=== PATIENT | female | born 1980 | race Caucasian/White ===

== ENCOUNTER → 2020-04-13 10:38 | Outpatient (CLI) | payer OTHER, SELFPAY ==
--- NOTE | ~2020-04-13 | CT_ITS ---
EXAMINATION: CT chest abdomen pelvis w con DATE: 04/13/2020 11:16 INDICATION: Malignant neoplasm of upper outer quadrant of left breast. TECHNIQUE: Computed tomography (CT) of the chest, abdomen, and pelvis was performed with 100 mL Omnip aque 350 intravenous contrast. Automated exposure control and iterative reconstruction technique were employed. The dose-length product was 624.67 mGy-cm. COMPARISON: CT chest, abdomen, and pelvis 10/11/2019, 04/05/19 FINDINGS: CHEST CT: There is mild atelectasis in right lung. No pleural effusion or pneumothorax. The heart size is amber l. No pericardial effusion. There are bilateral mastectomies and bilateral breast implants. There is a 2.5 cm nodule in right thyroid lobe. There are no pathologically enlarged lymph nodes. There is chr onic fat stranding around the left internal mammary chain, consistent with treatment changes. ABDOMEN/PELVIS CT: The liver, gallbladder, spleen, pancreas, adrenal glands, and kidneys are normal. There are no dilate d loops of bowel. The appendix is normal. There are no pathologically enlarged lymph nodes. There is no free intraperitoneal fluid. There is no osseous metastatic disease. IMPRESSION: 1. No evidence of metastatic disease. 2. 2.5 cm right thyroid nodule, increased from 2.3 cm on 04/05/19 and 1.9 cm on 07/24/2015. Consider ul trasound-guided fine-needle aspiration. Reviewed, dictated and finalized at location A. IMPRESSION: 1. No evidence of metastatic disease. 2. 2.5 cm right thyroid nodule, increased from 2.3 cm on 04/05/19 and 1.9 cm on . Consider ultrasound-guided fine-needle aspiration.
[2020-04-13 11:06] LABS: Estimated Glomerular Filt Rate > 60
== END ==
PROVIDERS: Visit Provider Internal Medicine Medical Oncology
DX: C50.412 Malignant neoplasm of upper-outer quadrant of left female breast (principal); Z17.1 Estrogen receptor negative status [ER-]; E04.1 Nontoxic single thyroid nodule
CPT/HCPCS: 36415; 71260; 74177; Q9967

== ENCOUNTER → 2020-10-17 10:51 | Outpatient (CLI) | payer OTHER, SELFPAY ==
--- NOTE | ~2020-10-17 | CT_ITS ---
EXAMINATION: CT chest abdomen pelvis w con DATE: 10/17/2020 11:40 INDICATION: Chest wall pain and generalized abdominal and pelvic pain. Left breast cancer. TECHNIQUE: Computed tomography (CT) of the chest, abdomen, and pelvis was performed with 100 mL Omnip aque-350 intravenous contrast. Automated exposure control and iterative reconstruction technique were employed. The dose-length product was 712.24 mGy-cm. COMPARISON: 10/14/2019 FINDINGS: CHEST CT: Postoperative change of prior bilateral mastectomies with bilateral breast implants. Multiple surgica l clips consistent with associated left axillary lymph node dissection. 2.4 cm heterogeneously enhanc ing right thyroid mass. Lungs are clear with no pulmonary nodules, pneumonia, pulmonary edema or othe r pulmonary infiltrates, pleural effusion or pneumothorax. Heart size is normal. No pericardial effus ion. Thoracic aorta is normal in caliber with no dissection. No evident pulmonary embolism. No pathol ogically enlarged thoracic lymphadenopathy. Mild lower thoracic levocurvature. No suspicious lytic or blastic bone lesions. ABDOMEN/PELVIS CT: Liver, gallbladder, spleen, pancreas, bilateral adrenal glands and right kidney are normal. 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 Unclear wheth er there is more distal fusion. Bladder is normal. The uterus is not identified and has likely been s urgically resected. Bowels including the appendix are normal. No free intraperitoneal gas or fluid. N o pathologically enlarged abdominal or pelvic lymphadenopathy. Minimal degenerative skeletal changes in the lumbar spine and bilateral hips. No suspicious lytic or blastic bone lesions. IMPRESSION: 1. No evident metastatic disease or acute process in the chest, abdomen or pelvis. 2. Unchanged 2.5 cm right thyroid mass. Recommend ultrasound-guided fine-needle aspiration. Reviewed, dictated and finalized at location A. H [employer]ATOR IMPRESSION: 1. No evident metastatic disease or acute process in the chest, abdomen or pelv is. 2. Unchanged 2.5 cm right thyroid mass. Recommend ultrasound-guided fine-needle aspiration.
[2020-10-17 11:06] LABS: Estimated Glomerular Filt Rate > 60
== END ==
PROVIDERS: Visit Provider Internal Medicine Medical Oncology
DX: C50.412 Malignant neoplasm of upper-outer quadrant of left female breast (principal); Z17.1 Estrogen receptor negative status [ER-]; E04.9 Nontoxic goiter, unspecified
CPT/HCPCS: 71260; 74177; Q9967

== ENCOUNTER → 2021-04-23 02:19 | Outpatient (CLI) | payer OTHER, SELFPAY ==
[2021-04-24 15:38] LABS: SARS-CoV-2 RNA PCR Negative
== END ==
PROVIDERS: Visit Provider Surgery Plastic and Reconstructive Surgery
DX: Z01.812 Encounter for preprocedural laboratory examination (principal); Z20.822 Contact with and (suspected) exposure to COVID-19
CPT/HCPCS: C9803; U0003; U0005

== ENCOUNTER 2021-04-23 08:05 | Outpatient (CLI) | payer OTHER, SELFPAY ==
--- NOTE | 2021-04-23 08:22 | ECG_ITS ---
Measurements Intervals [place] Rate: 85 P: 41 VT: 170 QRS: 24 QRSD: 88 T: 31 QT: 363 QTc: 433 Interpretive Statements SINUS RHYTHM DELAYED PRECORDIAL R/S TRANSITION BASELINE ARTIFACT- I, II, III, AVR, AVL, AVF BORDERLINE ECG Electronically Signed On 04-23-2021 8:36:01 CDT by Trip Fishman D.O.
== END 2021-04-23 08:06 | disposition home or self-care (01) ==
LOC: ANHSURGERY 08:07
PROVIDERS: Visit Provider Surgery Plastic and Reconstructive Surgery
DX: E10.65 Type 1 diabetes mellitus with hyperglycemia (principal); Z01.818 Encounter for other preprocedural examination; R94.31 Abnormal electrocardiogram [ECG] [EKG]
CPT/HCPCS: 93005

== ENCOUNTER 2021-04-27 16:37 | Observation (INO) | payer OTHER, SELFPAY ==
[2021-04-18 15:59] VITALS: BMI 26.6
[2021-04-18 16:20] VITALS: BMI 26.6
--- NOTE | 2021-04-25 10:11 | WPDANESEPPF ---
Anes - Initial Pre Proc Eval Procedure: Operation Date: 04/26/21 09:00 Proposed Procedures p Abdominoplasty With Liposuction - Lalito Youssef MD Date/Time: 04/25/21 10:11 Surgeon: Lalito Youssef MD Pre Op Diagnosis: skin laxity Patient Data Age: 41 Gender: F Height: 1.63 m Weight: 70.45 kg Allergies Allergy/AdvReac Type Severity Reaction Status Date / Time ciprofloxacin Allergy Severe Anaphylaxis Verified 04/18/21 15:35 Quinolones Allergy Severe ANAPHYLAXIS Unverified 04/18/21 15:35 Sulfa (Sulfonamide Allergy Severe ANAPHYLAXIS Unverified 04/18/21 15:35 Antibiotics) sulfamethizole Allergy Intermediate Hives Verified 04/18/21 15:35 sulfamethoxazole Allergy Intermediate Hives Unverified 04/18/21 15:35 Home Medications Medication Instructions Recorded Confirmed Type flash glucose scanning reader #1 each 11/04/19 04/10/21 History glucagon (human recombinant) 1 mg 1 mg SUB-Q Q20M PRN each 11/04/19 04/18/21 History solution for injection subcutaneous insulin pump #1 each 11/04/19 04/10/21 History venlafaxine 75 mg capsule,extended 75 mg PO DAILY 11/04/19 04/18/21 History release 24 hr flash glucose sensor #6 each 01/03/21 04/10/21 Rx metformin 500 mg tablet 500 mg PO BID 90 Days #180 tablet 01/08/21 04/18/21 Rx insulin pump cartridge #45 ea 01/10/21 04/10/21 Rx insulin aspart U-100 100 unit/mL See Rx Instructions .ROUTE 04/09/21 04/18/21 Rx subcutaneous solution .COMPLEX #90 ml docusate sodium 100 mg capsule 100 mg PO DAILY #14 cap 04/11/21 04/18/21 Rx carisoprodol 350 mg tablet 350 mg PO TID PRN #21 tablet 04/12/21 04/18/21 Rx oxycodone-acetaminophen 5 mg-325 1 tablet PO Q6H PRN #15 tablet 04/12/21 04/18/21 Rx mg tablet pravastatin 40 mg tablet 40 mg PO QHS 30 Days #30 tablet 04/23/21 Rx Patient hx anesthesia problems: none Family hx anesthesia problems: none PMFSH Past Medical History Medical History (Updated 04/25/21 @ 10:12 by Chun Bass DO) History of breast cancer Hyperlipidemia LDL goal <[address] Type 1 diabetes mellitus with hyperglycemia, with long-term current use of insulin Surgical History Surgical History H/O mastectomy H/O: hysterectomy Family History Family History Other Depression Family history of alcoholism Family history of malignant neoplasm of breast Hypertension Social History Social History Smoking status: Never smoker Alcohol intake: current Drinks per week: 2 Alcohol use details: socially Living arrangements: with family Spiritual care concerns: No Anes - Eval Final PreProcedure Day of Procedure 04/25/21 10:11 Patient weight: overweight Heart: regular rate and rhythm Lungs: clear to auscultation and normal air movement Airway: Mallampati scale class II Neurological: alert and oriented Last oral intake: >/= 8 hours ASA classification: III Emergent: no Anesthetic plan: proceed Anesthesia type and monitoring: general ETT and standard monitoring Informed Consent: The patient's anesthetic plan and its attendant risks and benefits were discussed with the patient/family/POA. Questions were solicited and answers provided to the satisfaction of the patient/family/POA.
[2021-04-26] VITALS (18 sets, daily range): BP systolic 107–139; BP diastolic 71–97; PULSE 93–110; RESP 12–18; TEMP 36.6–37.9; O2SAT 87–100; BMI 26.4
--- NOTE | 2021-04-26 08:00 | SUR.PREOP ---
0800- Notified Dr. Bass patient has insulin pump infusing Novolog and clarified if able to keep insulin pump infusing in OR. Per Dr. Bass can continue insulin pump at basal rate. Dr. Bass to bedside and discussed with patient to keep insulin pump at basal rate while in OR for procedure, patient verbalized understanding.
[2021-04-26] MEDS: LACTATED RINGERS 1,000 ML 30 ML IV CONT ×3 (08:10→14:50)
[2021-04-26 08:13] LABS: Urine Cotinine NEGATIVE
--- NOTE | 2021-04-26 08:18 | WPDHPUPDATE1 ---
History and Physical Update Update Date/Time: 04/26/21 08:18 History and Physical has been reviewed, including an updated exam of the patient. There are NO changes in the patient's condition. Risks, benefits, and alternatives have been discussed and questions answered. Patient agrees to proceed with procedure.
[2021-04-26 08:21] LABS: Glucose Point of Care 157 mg/dl (65-105)
--- NOTE | 2021-04-26 08:40 | W.PM.PROC2 ---
Procedure Note - Detailed Date of Procedure 04/26/21 Pre-op Diagnosis skin laxity Post-op Diagnosis same Procedure Performed Progressive tension abdominoplasty with suction lipectomy Surgeon Lalito Youssef MD Anesthesia general Findings Tissue removed - 886 grams Lipoaspirate - 1600 cc Description of Procedure They are here today for abdominoplasty. Previously and again today the risks, benefits, alternatives were discussed in extensive detail. I wanted them to be very realistic about the risks involved as well as expectations. We discussed aftercare and what to monitor for. I was very upfront about the risks of wound breakdown leading to loss of skin, open wounds, and need for additional procedures with permanent abdominal deformity. We discussed DVT/PE risks and management. Made sure answered all of their questions to their satisfaction today and consent was obtained. They were marked in the preoperative holding area with their verification. The patient was taken to the operating room placed supine on the operating table. Anesthesia was provided by anesthesiology. A Dominguez catheter was started. They were prepped and draped in a standard sterile fashion. A surgical time-out was taken. I placed the patient in a flexed position to verify the upper and lower markings would reach. I then placed supine. A thorough abdominal examination was completed. Stab incisions were made and tumescent solution infiltrated. A liposuction basket cannula was utilized to provide discontinuous undermining. Suction lipectomy was completed with combination of 5 and 3mm basket cannulas in multiple planes / passes based on modification of S.A.F.E. technique. This was supine and in lateral decubitus positions. A 10 blade was used to make the upper incision. I continued dissection down to the level of fascia. Elevated just what was necessary for repair of the diastasis. I then again flexed the bed to verify the upper skin flap would reach the lower markings without tension. Once verified I placed her supine once again and a 10 blade used to make the lower incision. I elevated up to level the umbilicus and left the umbilicus intact on a well-vascularized stalk. The intervening tissue was removed. A 2 mm blunt cannula with 0.5% bupivicaine was injected deep to the fascia bilaterally. I plicated the diastasis recti using 0 PDO stratafix barbed suture. This was in 2 separate layers using 2 separate sutures as well. I repaired around the umbilicus leaving plenty of room for well-vascularized stalk of the umbilicus with 2-0 PDS. I also repaired lateral to the rectus using two layers of 0 PDO stratafix. The patient was flexed and starting from superior to inferior began plication using 2-0 Vicryl to obliterate all space in a standard progressive tension fashion. At the umbilicus I marked out the location of the skin and inset this with 3-0 Monocryl and 4-0 Vicryl. I continued the remainder of the plication using 2-0 Vicryl until I reached my lower planned scar line. I trimmed any excess skin of the upper flap making sure this was a tension-free closure. I then approximated using a 3 point suture with 2-0 Vicryl followed by 3-0 stratafix ,running subcuticular 4-0 Monocryl, and tissue glue. Fluffs and an abdominal binder were placed. The patient was transferred to the bed in a flexed position. Awoken and taken to the PACU without difficulty. All instrument and sponge counts were correct at the end of the case. Estimated Blood Loss 50 Drains No Packing No Pathology none sent Complications No immediate complications Condition stable Disposition PACU
[2021-04-26] MEDS: ceFAZolin 2 GM/D5W 50 ML 2 GM/50 ML BAG IVPB (08:49)
[2021-04-26] MEDS: LACTATED RINGERS IRRIG 1,000 ML, LIDOCAINE HCL 1% LOCAL INJ 50 ML, EPINEPHrine HCL INJ ... INFILTRATE (08:49)
[2021-04-26] MEDS: BUPIVACAINE/EPINEPHRINE 0.5% 10 ML VIAL 50 ML INFILTRATE (10:52)
--- NOTE | 2021-04-26 12:19 | SUR.OPER ---
ebl:[id number]
[2021-04-26] MEDS: fentaNYL CITRATE INJ (*CRX) 100 MCG/2 ML VIAL 25 MCG IV PUSH ×8 (13:21→15:15)
[2021-04-26 13:22] LABS: Glucose Point of Care 181 mg/dl (65-105)
--- NOTE | 2021-04-26 15:36 | PC.NURSE ---
This patient, Caryn Ramos, was received from PACU on 04/26/21 at 1536. Patient/family oriented to unit policies and routines
[2021-04-26] MEDS: MORPHINE SULFATE (*CRX) 2 MG/ML INJ IV PUSH ×4 (16:22→23:35)
[2021-04-26] MEDS: LACTATED RINGERS 1,000 ML 125 ML IV CONT ×2 (16:22→23:30)
[2021-04-26] MEDS: ONDANSETRON INJ 4 MG/2 ML VIAL IV PUSH ×2 (16:23→22:27)
[2021-04-26] MEDS: ENOXAPARIN 40 MG/0.4 ML SYRINGE SUB-Q (18:39)
[2021-04-26] MEDS: carisoprodoL (*CRX) 350 MG TABLET PO (19:07)
[2021-04-26] MEDS: oxyCODONE/ACETAMINOPHEN (*CRX) 5-325 MG TABLET PO (19:07)
[2021-04-27] VITALS (13 sets, daily range): BP systolic 107–114; BP diastolic 76–80; PULSE 105–110; RESP 16–24; TEMP 36.9–37.6; O2SAT 87–97
--- NOTE | ~2021-04-27 | XR_ITS ---
EXAMINATION: XR chest 1V portable INDICATION: Chest pressure, history of breast cancer TECHNIQUE: Portable AP chest at 1902 hours COMPARISON: None available FINDINGS: The lung volumes are low. The lungs are free of acute opacities. There is no pleural effusi on or pneumothorax. The cardiomediastinal silhouette is normal. Surgical clips are noted in the left axilla. IMPRESSION: 1. No acute cardiopulmonary abnormality. Reviewed, dictated and finalized at location A.
[2021-04-27] MEDS: carisoprodoL (*CRX) 350 MG TABLET PO ×4 (01:03→21:18)
[2021-04-27] MEDS: oxyCODONE/ACETAMINOPHEN (*CRX) 5-325 MG TABLET PO ×3 (01:03→23:32)
[2021-04-27] MEDS: MORPHINE SULFATE (*CRX) 2 MG/ML INJ IV PUSH ×2 (02:11→04:13)
[2021-04-27] MEDS: CALCIUM CARBONATE (TUMS) 500 MG (200 MG ELEMENTAL) PO ×3 (03:38→19:14)
--- NOTE | 2021-04-27 06:10 | WPDPN ---
Progress Note: A&P Assessment and Plan (1) Skin laxity: Code(s): L57.4 - Cutis laxa senilis Status: Acute Assessment and Plan: Overnight significant discomfort. Improved this morning. Will try Toradol. Also provide Tums for some indigestion. Anticipate discharge later today or tomorrow. Her oxygen requirements have weaned off. She is breathing well. No evidence of DVT. No evidence of PE. Today we had a lengthy discussion about postdischarge care. What monitor for. Activity limitations. Answered all of their questions to their satisfaction today. (2) Type 1 diabetes mellitus with hyperglycemia, with long-term current use of insulin: Code(s): E10.65 - Type 1 diabetes mellitus with hyperglycemia Status: Acute Assessment and Plan: She understands the importance of glycemic control. (3) History of breast cancer: Code(s): Z85.3 - Personal history of malignant neoplasm of breast Status: Acute (4) Insulin pump in place: Code(s): Z96.41 - Presence of insulin pump (external) (internal) Status: Acute Subjective Date/time seen: 04/27/21 06:10 Overnight she had significant discomfort. She also required low-level oxygen. Today she still having discomfort but improving. No fevers or chills. No nausea vomiting. She is having a little reflux symptoms that were improved with Tums. No shortness of breath. No chest pain. No calf tenderness. Review of Systems Review of Systems: All systems reviewed & are unremarkable except as noted in HPI and below Exam Narrative: Alert and oriented, no obvious distress Respiratory unlabored Abdomen soft. No signs of infection. No hematoma. No seroma. Good color and capillary refill. No calf tenderness. Negative Homans. Objective Data Vital Signs Vital Signs: Vital Signs - 24 hr 04/26/21 07:10 04/26/21 12:42 04/26/21 12:45 Temperature 36.6 C 36.9 C Pulse Rate 99 93 98 Respiratory Rate 16 16 12 Blood Pressure 132/92 H 138/97 H 135/96 H Pulse Oximetry 98 99 98 04/26/21 13:00 04/26/21 13:15 04/26/21 13:30 Temperature Pulse Rate 102 H 108 H 103 H Respiratory Rate 14 13 12 Blood Pressure 135/96 H 131/97 H 139/93 H Pulse Oximetry 98 98 96 04/26/21 13:45 04/26/21 14:00 04/26/21 14:15 Temperature Pulse Rate 102 H 99 101 H Respiratory Rate 13 13 12 Blood Pressure 129/88 132/91 H 131/94 H Pulse Oximetry 98 96 98 04/26/21 14:30 04/26/21 14:45 04/26/21 15:00 Temperature Pulse Rate 99 110 H 109 H Respiratory Rate 12 15 12 Blood Pressure 128/94 H 124/95 H 126/97 H Pulse Oximetry 97 95 96 04/26/21 15:15 04/26/21 16:00 04/26/21 20:00 Temperature 36.9 C 37.1 C Pulse Rate 105 H 101 H 102 H Respiratory Rate 12 18 16 Blood Pressure 124/89 132/88 118/86 Pulse Oximetry 95 100 93 04/26/21 22:45 04/26/21 22:46 04/26/21 23:30 Temperature 37.7 C H 37.9 C H Pulse Rate 103 H 105 H Respiratory Rate 18 18 Blood Pressure 107/71 110/77 Pulse Oximetry 87 L 98 95 04/27/21 02:11 04/27/21 03:40 Temperature 37.4 C 37.3 C Pulse Rate 108 H Respiratory Rate 18 Blood Pressure 108/76 Pulse Oximetry 95 Intake/Output Intake/Output: Intake & Output 04/24/21 04/25/21 04/26/21 04/27/21 23:59 23:59 23:59 23:59 Intake Total 3500 Output Total 1700 225 Balance 1800 -225 Meds/Results Medications: Active Medications Generic Name Dose Route Start Last Admin Trade Name Lucy PRN Reason Stop Dose Admin Calcium Carbonate 200 mg 04/27/21 03:19 04/27/21 03:38 Calcium Carbonate (Tums) 500 Mg (200 Mg Elemental) PO 200 mg Q6H PRN Administration Indigestion Carisoprodol 350 mg 04/26/21 18:00 04/27/21 01:03 Carisoprodol (*Crx) 350 Mg Tablet PO 350 mg Q6HR ADRIANO Administration Docusate Sodium 100 mg 04/26/21 21:00 04/26/21 22:46 Docusate Sodium 100 Mg Capsule PO Not Given Q12HR [facility] Enoxaparin Sodium 40 mg 04/26/21 19:00 04/26/21 18:39
[2021-04-27] MEDS: KETOROLAC 30 MG/ML VIAL (*BKC) IV PUSH ×3 (06:32→19:13)
[2021-04-27] MEDS: DOCUSATE SODIUM 100 MG CAPSULE PO ×2 (07:38→21:18)
--- NOTE | 2021-04-27 08:10 | WPDANESPN ---
Anes - Prog Note Post-Op Date/Time: 04/27/21 08:10 Cardiovascular status: normal Respiratory status: normal Airway patency: baseline Mental status: baseline Post-Op hydration status: normal Vital Signs: Last Vital Signs Temp 37.3 C 04/27/21 03:40 Pulse 108 H 04/27/21 03:40 Resp 18 04/27/21 03:40 BP 108/76 04/27/21 03:40 Pulse Ox 95 04/27/21 03:40 Pain Score (VAS): 0 I/O: Intake & Output 04/26/21 04/27/21 04/27/21 23:59 07:59 15:59 Intake Total 1050 Output Total 1300 225 Balance -250 -225 04/26/21 04/26/21 04/26/21 07:47 08:16 13:19 POC Capillary Glucose 157 H 181 H Cotinine Negative Post-procedural complaints: none Patient Feedback: Patient satisfied with anesthetic care.
--- NOTE | 2021-04-27 13:25 | PC.NURSE ---
Patient glucose is 142 per patient's own meter.
[2021-04-27] MEDS: LACTATED RINGERS 1,000 ML 75 ML IV CONT (17:10)
--- NOTE | 2021-04-27 18:50 | ECG_ITS ---
Measurements Intervals [place] Rate: 109 P: 44 OK: 157 QRS: 23 QRSD: 89 T: 9 QT: 317 QTc: 427 Interpretive Statements SINUS TACHYCARDIA NONSPECIFIC T-WAVE ABNORMALITY- ANT/INF LEADS ABNORMAL ECG Electronically Signed On 04-28-2021 7:30:51 CDT by Trip Fishman D.O.
[2021-04-27 19:28] LABS: Basophils Percent Auto 0.3 % (0.2-1.2); Eosinophils Percent Auto 0.7 % (0-4.4); Hematocrit 34.4 % (37.0-47.0); Hemoglobin 11.4 g/dL (12.0-15.0); Immature Granulocyte Absolute 0.02 K/mm3 (0.00-0.031); Immature Granulocyte Percent A 0.3 % (0-0.5); Lymphocytes Absolute Auto 0.64 K/mm3 (0.9-3.2); Lymphocytes Percent Auto 10.8 % (18.3-44.2); Mean Corpuscular HGB Conc 33.1 g/dl (32-36); Mean Corpuscular Hemoglobin 31.8 pg (26-34); Mean Corpuscular Volume 96.1 fl (80-100); Mean Platelet Volume 8.9 fl (7.4-10.4); Monocytes Absolute Auto 0.5 K/mm3 (0.1-0.6); Monocytes Percent Auto 8.6 % (2.6-8.5); Neutrophils Absolute Auto 4.7 K/mm3 (1.3-6.7); Neutrophils Percent Auto 79.3 % (45.5-73.1); Platelet Count Result 164 k/mm3 (150-375); Red Blood Count 3.58 M/mm3 (4.2-5.4); Red Cell Distribution Width 12.5 % (11.5-14.5); White Blood Count 5.9 K/mm3 (4.5-10.0)
[2021-04-27 19:43] LABS: Anion Gap 4 mmol/L (8-16); Blood Urea Nitrogen 11 mg/dL (7-17); Carbon Dioxide 32 mmol/L (22-30); Chloride 98 mmol/L (98-107); Estimated CRCL calculation 91 ml/min; Estimated Glomerular Filt Rate > 60; Glucose 140 mg/dL (65-110); Potassium 3.9 mmol/L (3.4-5.0); Sodium 134 mmol/L (137-145)
[2021-04-27] MEDS: ENOXAPARIN 40 MG/0.4 ML SYRINGE SUB-Q (19:55)
[2021-04-28] VITALS (11 sets, daily range): BP systolic 108–129; BP diastolic 71–88; PULSE 100–118; RESP 16–20; TEMP 36.6–37.6; O2SAT 92–95
[2021-04-28] MEDS: KETOROLAC 30 MG/ML VIAL (*BKC) IV PUSH ×2 (01:25→09:40)
[2021-04-28] MEDS: carisoprodoL (*CRX) 350 MG TABLET PO ×3 (03:10→20:55)
--- NOTE | 2021-04-28 06:30 | PC.NURSE ---
PT introductions made and plan of care discussed per post up surgery, pain management, and daily care activities. PT and mother both recipients of such instructions per one to one discussion, and demonstration through out this shift. No barriers to learning identified. PT verbalized understanding of such care.
--- NOTE | 2021-04-28 07:33 | WPDPN ---
Progress Note: A&P Assessment and Plan (1) Skin laxity: Code(s): L57.4 - Cutis laxa senilis Status: Acute Assessment and Plan: She states much improved today. She is stilling using oxygen although we aren't certain her needs overnight. Encourage ambulation and incentive spirometer today. Encourage PO. Anticipate home later today. Again today we discussed her goals today as well as post discharge care. She states she has had significant improvement since yesterday. No evidence of cardiac event. No evidence of DVT/PE. I am going to encourage ambulation and deep breathing. Encourage oral intake. Will wean off oxygen. (2) Type 1 diabetes mellitus with hyperglycemia, with long-term current use of insulin: Code(s): E10.65 - Type 1 diabetes mellitus with hyperglycemia Status: Acute Assessment and Plan: She understands the importance of glycemic control. (3) History of breast cancer: Code(s): Z85.3 - Personal history of malignant neoplasm of breast Status: Acute (4) Insulin pump in place: Code(s): Z96.41 - Presence of insulin pump (external) (internal) Status: Acute Subjective Date/time seen: 04/28/21 07:33 Test results noted. Overnight she continued to improve. Last evening she had significant increase in oral intake with food. She states this morning she is doing well. Much better than she was doing yesterday she states. No fevers or chills. No nausea vomiting. Tolerating diet. No shortness of breath. No calf tenderness. She does complain of chest tightness however she describes this really in her upper abdomen region. She states when she takes a really deep breath she feels like she has tight in her lower chest / upper abdomen. She has been trying to use incentive spirometer however has not been hitting her goals she states. Of note her mother has been adjusting her oxygen as well as removing and replacing it overnight. Nursing was unaware and I notified this AM. Review of Systems Review of Systems: All systems reviewed & are unremarkable except as noted in HPI and below Exam Narrative: Alert and oriented, no obvious distress. Easily speaking. Appears confortable. Respiratory unlabored Abdomen soft. No signs of infection. No hematoma. No seroma. Good color and capillary refill. No calf tenderness. Negative Homans. Objective Data Vital Signs Vital Signs: Vital Signs - 24 hr 04/27/21 07:50 04/27/21 12:45 04/27/21 14:10 Temperature 37.6 C H 36.9 C Pulse Rate 105 H 106 H Respiratory Rate 16 24 H Blood Pressure 114/80 107/76 Pulse Oximetry 92 93 97 04/27/21 14:45 04/27/21 15:15 04/27/21 15:45 Temperature Pulse Rate Respiratory Rate Blood Pressure Pulse Oximetry 97 93 95 04/27/21 16:20 04/27/21 16:50 04/27/21 17:30 Temperature Pulse Rate 106 H Respiratory Rate Blood Pressure Pulse Oximetry 87 L 97 95 04/27/21 20:00 04/27/21 22:00 04/28/21 00:00 Temperature 37.3 C Pulse Rate 110 H Respiratory Rate 18 Blood Pressure 112/76 Pulse Oximetry 93 95 93 04/28/21 01:30 04/28/21 03:10 04/28/21 05:00 Temperature 37.1 C Pulse Rate 109 H 100 Respiratory Rate 18 Blood Pressure 121/81 Pulse Oximetry 94 94 95 04/28/21 05:30 Temperature Pulse Rate Respiratory Rate Blood Pressure Pulse Oximetry 92 Intake/Output Intake/Output: Intake & Output 04/25/21 04/26/21 04/27/21 04/28/21 23:59 23:59 23:59 23:59 Intake Total 3500 1420 300 Output Total 1700 1675 500 Balance 1800 -255 -200 Meds/Results Medications: Active Medications Generic Name Dose Route Start Last Admin Trade Name Freq PRN Reason Stop Dose Admin Calcium Carbonate 200 mg 04/27/21 03:19 04/27/21 19:14 Calcium Carbonate (Tums) 500 Mg (200 Mg Elemental) PO 200 mg Q6H PRN Administration Indigestion Carisoprodol 350 mg 04/26/21 18:00 04/28/21 03:10 Carisoprodol (*C
[2021-04-28] MEDS: oxyCODONE/ACETAMINOPHEN (*CRX) 5-325 MG TABLET PO ×3 (09:37→22:37)
[2021-04-28] MEDS: CALCIUM CARBONATE (TUMS) 500 MG (200 MG ELEMENTAL) PO ×2 (09:37→16:44)
[2021-04-28] MEDS: metFORMIN HCL 500 MG TABLET PO ×2 (09:39→16:45)
[2021-04-28] MEDS: DOCUSATE SODIUM 100 MG CAPSULE PO ×2 (09:40→20:56)
[2021-04-28] MEDS: KETOROLAC 10 MG TABLET PO ×2 (16:44→22:38)
--- NOTE | 2021-04-28 19:36 | WPDPN ---
Progress Note: A&P Assessment and Plan (1) Skin laxity: Code(s): L57.4 - Cutis laxa senilis Status: Acute Assessment and Plan: She continues to improve. On examination she looks appropriate for this stage of healing. She does complain of some fatigue however this is not outside typical for her recovery. She continues to have decreased (low normal) pulse ox findings as well as tachycardia. Admission (prior to the procedure) pulse oximetry was 98 with heart rate of 99. Will give Miralax. Check Covid (fatigue, pulse ox findings, tachycardia). Monitor overnight. If further improvement as she has had today anticipate home tomorrow. Encourage PO and ambulation. No signs / symptoms of DVT or PE. (2) Type 1 diabetes mellitus with hyperglycemia, with long-term current use of insulin: Code(s): E10.65 - Type 1 diabetes mellitus with hyperglycemia Status: Acute Assessment and Plan: She understands the importance of glycemic control. (3) History of breast cancer: Code(s): Z85.3 - Personal history of malignant neoplasm of breast Status: Acute (4) Insulin pump in place: Code(s): Z96.41 - Presence of insulin pump (external) (internal) Status: Acute Subjective Date/time seen: 04/28/21 19:36 She states that throughout the day today she has actually done pretty well. Continues to improve. She has had flatus. No bowel movement. Tolerating diet. No nausea vomiting. No fevers or chills. She says her pain is much improved she has little tightness in her abdomen /lower chest. She does have a mild cough she states bringing up some mucous / phlegm. No calf tenderness. She does continue to have pulse ox readings lower than anticipated as well as tachycardia. She also continues to have significant fatigue although she is alert and oriented able to answer questions easily. I did a very thorough review of systems which was completely negative except as above. She is now been able to get her in centers from her up to a 1000. Previously she was at 500. She has not had COVID. She has not had a COVID vaccination. Review of Systems Review of Systems: All systems reviewed & are unremarkable except as noted in HPI and below Exam Const: General: cooperative, healthy appearing, comfortable, no acute distress, alert and awake; No acute distress Orientation/consciousness: oriented to person HENMT: Head: normal to inspection Ears: external ears normal General nose exam: Normal external nose present Face and sinus: normal facial exam Eyes: General: appearance normal, both eyes and all related structures Periorbital: periorbital findings normal Eyelids: eyelids normal Conjunctivae: conjunctivae normal Neck: Neck: normal visual inspection Other: No JVD Chest: Chest palpation & inspection: normal inspection of the chest Other: No tenderness of implants. No chest wall tenderness. Resp: Effort & Inspection: normal respiratory effort, able to speak in complete sentences and no audible wheezes Cardio: Jugular venous distension: no JVD GI: Inspection: normal to inspection Other: No rebound tenderness. Abdomen with good color and capillary refill. Soft. No hematoma. No seroma. No signs of infection. Appropriately tender. Skin: General skin exam: normal color and no rashes or lesions noted Other: No rashes identified. Neuro: General: oriented to person and moves all extremities Extrem: General: no pedal edema and no calf tenderness Other: No upper or lower extremity edema. Negative Homans. No calf tenderness. Psych: Appearance: grossly normal Mental Status: mental status grossly normal Objective Data Vital Signs Vital Signs: Vital Signs - 24 hr 04/27/21 20:00 04/27/21 22:00 04/28/21 00:00 Temperature 37.3 C Pulse Rate 110 H Respiratory Rate 18 Blood Pressure 112/76 Pulse Oximetry 93 95 93 04/28/21 01:30 04/28/21 03:10 04/28/21 05:
[2021-04-28] MEDS: ENOXAPARIN 40 MG/0.4 ML SYRINGE SUB-Q (20:55)
[2021-04-28] MEDS: polyethylene glycoL 3350 17 GM POWD.PACK PO (20:56)
[2021-04-29] MEDS: carisoprodoL (*CRX) 350 MG TABLET PO ×2 (02:53→09:49)
[2021-04-29 03:00] VITALS: BP 118/83; PULSE 105; RESP 18; TEMP 36.9; O2SAT 94
--- NOTE | 2021-04-29 06:33 | WPDPN ---
Progress Note: A&P Assessment and Plan (1) Skin laxity: Code(s): L57.4 - Cutis laxa senilis Status: Acute Assessment and Plan: She is much improved. Will discharge home. Follow-up later this week. Today we had a lengthy discussion about the care. Activity limitations. What monitor for. We discussed what is a medical emergency and went to dial 911. She is going to have people with her. This was a lengthy open-ended conversation making sure answered all of her questions. She understands COVID test is still pending so isolation is I advised until we have those results. I will also send her a dose of magnesium citrate to be available. (2) Type 1 diabetes mellitus with hyperglycemia, with long-term current use of insulin: Code(s): E10.65 - Type 1 diabetes mellitus with hyperglycemia Status: Acute Assessment and Plan: She understands the importance of glycemic control. (3) History of breast cancer: Code(s): Z85.3 - Personal history of malignant neoplasm of breast Status: Acute (4) Insulin pump in place: Code(s): Z96.41 - Presence of insulin pump (external) (internal) Status: Acute Subjective Date/time seen: 04/29/21 06:33 This morning she states that she feels dramatically better. No fevers or chills. No nausea vomiting. No shortness of breath. No chest pain. No calf tenderness. She is having flatus but no bowel movement. She would lead to binder off overnight says she has dramatically less of the tight feeling. When she ambulates she does have to put on. Review of Systems Review of Systems: All systems reviewed & are unremarkable except as noted in HPI and below Exam Narrative: Alert and oriented no eyes distress Respiratory and labor Abdomen soft. No signs of infection. No hematoma. No seroma. Good color and capillary refill. No calf tenderness. Negative Homans. Objective Data Vital Signs Vital Signs: Vital Signs - 24 hr 04/28/21 09:30 04/28/21 12:00 04/28/21 13:00 Temperature 36.9 C 37.2 C Pulse Rate 115 H 114 H 118 H Respiratory Rate 18 16 Blood Pressure 108/71 108/72 Pulse Oximetry 94 94 93 04/28/21 16:00 04/28/21 20:00 04/28/21 23:00 Temperature 37.0 C 37.6 C 36.6 C Pulse Rate 113 H 105 H 114 H Respiratory Rate 20 18 18 Blood Pressure 118/81 129/88 126/88 Pulse Oximetry 94 93 93 04/29/21 03:00 Temperature 36.9 C Pulse Rate 105 H Respiratory Rate 18 Blood Pressure 118/83 Pulse Oximetry 94 Intake/Output Intake/Output: Intake & Output 04/26/21 04/27/21 04/28/21 04/29/21 23:59 23:59 23:59 23:59 Intake Total 3500 1420 900 Output Total 1700 1675 1500 Balance 0242 -091 -626 Meds/Results Medications: Active Medications Generic Name Dose Route Start Last Admin Trade Name Freq PRN Reason Stop Dose Admin Calcium Carbonate 200 mg 04/27/21 03:19 04/28/21 16:44 Calcium Carbonate (Tums) 500 Mg (200 Mg Elemental) PO 200 mg Q6H PRN Administration Indigestion Carisoprodol 350 mg 04/26/21 18:00 04/29/21 02:53 Carisoprodol (*Crx) 350 Mg Tablet PO 350 mg Q6HR ADRIANO Administration Docusate Sodium 100 mg 04/26/21 21:00 04/28/21 20:56 Docusate Sodium 100 Mg Capsule PO 100 mg Q12HR ADRIANO Administration Enoxaparin Sodium 40 mg 04/26/21 19:00 04/28/21 20:55 Enoxaparin 40 Mg/0.4 Ml Syringe SUB-Q 40 mg Q24H ADRIANO Administration Glucagon 1 mg 04/27/21 11:01 Glucagon For Inj 1 Mg Vial IM PRN PRN Hypoglycemia Protocol Lactated Ringer's 1,000 mls @ 75 mls/hr 04/26/21 12:45 04/29/21 03:10 Lr - Lactated Ringers Iv IV CONT Not Given .[id number] [facility] Ketorolac Tromethamine 30 mg 04/27/21 06:07 04/28/21 09:40 Ketorolac 30 Mg/Ml Vial (*Bkc) IV PUSH 30 mg Q6H PRN Administration Pain Rated 4-6 Ketorolac Tromethamine 10 mg 04/28/21 13:10 04/28/21 22:38 Ketorolac 10 Mg Tablet PO 10 mg Q6H PRN Administration Tisha
--- NOTE | 2021-04-29 06:44 | PM.DS ---
DS: Admitting Diagnosis Admitting Diagnosis Skin laxity Diabetes History breast cancer DS: Discharge Diagnosis Discharge Diagnosis (1) Skin laxity: Code(s): L57.4 - Cutis laxa senilis Status: Acute (2) Type 1 diabetes mellitus with hyperglycemia, with long-term current use of insulin: Code(s): E10.65 - Type 1 diabetes mellitus with hyperglycemia Status: Acute (3) History of breast cancer: Code(s): Z85.3 - Personal history of malignant neoplasm of breast Status: Acute DS: Summary Hospital Course Hospital Course: She underwent progressive tension abdominoplasty and was kept postoperatively for pain control. Her first night postoperative she had quite a bit of discomfort as well as requiring low flow oxygen. We were able to improve her pain with Toradol down to a pain level of 1 at the time of discharge. During her visit she was tachycardic and required low volume oxygen at times. She remained tachycardic through her entire visit as well as saturations low normal with no signs or symptoms of DVT/PE. She also felt upper abdominal / chest tightness. EKG and chest x-rays were checked which were normal. We also reviewed labs. On POD#3 She feels dramatically improved. Tolerating diet, ambulating, no shortness of breath, flatus (no BM), pain controlled. We do have COVID 19 test pending. Will discharge home. Time Spent with Patient Time attestation: Total time spent providing and/or coordinating discharge services: Exam Narrative: Alert and oriented no eyes distress Respiratory and labor Abdomen soft. No signs of infection. No hematoma. No seroma. Good color and capillary refill. No calf tenderness. Negative Homans. DS: Data Data Completed and Pending Labs on day of discharge: Labs from last 24 hours 04/28/21 19:33 SARS-CoV-2 RNA (RT-PCR) Pending Discharge Plan Discharge Attending physician on discharge: Lalito Youssef Discharging Clinician: Lalito Youssef Anticipated Discharge Date/Time: 04/29/21 06:44 Patient Disposition: Home, Self-Care Activity: may shower Diet: diabetic Discharge Instructions: POST OPERATIVE DISCHARGE INSTRUCTIONS FOR LALITO YOUSSEF M.D. [facility] [address] [place] [address] [address] for 24 hours after anesthesia and while you are taking pain medication. Take all prescribed medication as directed. Covid-19 test is pending. Results anticipated Friday. Please isolate until results are recieved. Will provide a dose of Magnesium Citrate for constipation if needed. Diet as tolerated. No lifting or activity that raises blood pressure for 48 hours. Regular walking / ambulation. May shower. Once you shower do not take pain medication before showering as the combination of medication and heat may cause you to feel dizzy or pass out. No pools or tubs for at least 2 weeks. Slowly stand up straight over the week as tolerated. No straining / lifting more than 20 pounds for 6 weeks. Call with any questions or concerns. Dressing Care: Abdominal binder 23 hours per day. If you have any questions or concerns, please call the office . If it is after hours you will be directed to the conduit bender exchange. Shortness of breath, chest pain, or other medical emergency dial 911 / proceed to the Emergency Room. Patient Instructions: Antibiotic Form Stand Alone Forms: General Discharge Information, General Discharge Instructions Follow-up/Referrals: Lalito Youssef MD [Physician] - Other (This week) Discharge Medications: New magnesium citrate Solution 300 ml PO ONCE Qty: 296 RF: 0 ketorolac 10 mg Tablet 10 mg PO Q6H PRN (Reason: Pain Rated 4-6) Qty: 30 RF: 0 Continued metformin 500 mg tablet 500 mg PO BID 90 Days Qty: 180 RF: 6 (DME) [employer] See Rx Instructions .R
[2021-04-29 09:30] VITALS: BP 120/70; PULSE 115; RESP 18; TEMP 37.6; O2SAT 95
[2021-04-29] MEDS: oxyCODONE/ACETAMINOPHEN (*CRX) 5-325 MG TABLET PO ×2 (09:50→10:09)
[2021-04-29] MEDS: DOCUSATE SODIUM 100 MG CAPSULE PO (09:50)
[2021-04-29] MEDS: metFORMIN HCL 500 MG TABLET PO (09:51)
[2021-04-29] MEDS: KETOROLAC 10 MG TABLET PO (09:51)
--- NOTE | 2021-04-29 12:45 | PC.NURSE ---
PT received discharge instructions. PT was assisted with dressing and reapplying abdominal binder. PT oob and walked to wheelchair. PT verbalized understanding of discharge and follow up appts confimed.
--- NOTE | 2021-04-29 13:02 | PC.NURSE ---
PT discharged to home via wheelchair and to waiting car with her spouse. Follow up appts confirmed
[2021-04-30 13:58] LABS: SARS-CoV-2 RNA PCR Negative
== END 2021-04-29 13:02 | disposition home or self-care (01) ==
LOC: ANHSURGERY 17:18 → ANHOB2 17:18
PROVIDERS: Admitting Provider Surgery Plastic and Reconstructive Surgery; Visit Provider Surgery Plastic and Reconstructive Surgery
PROC: (CPT 15830; principal; 2021-04-26 09:00)
DX: Z41.1 Encounter for cosmetic surgery (principal); L57.4 Cutis laxa senilis; Z79.4 Long term (current) use of insulin; Z79.84 Long term (current) use of oral hypoglycemic drugs; Z96.41 Presence of insulin pump (external) (internal); Z79.891 Long term (current) use of opiate analgesic; E78.5 Hyperlipidemia, unspecified; E10.65 Type 1 diabetes mellitus with hyperglycemia; Z85.3 Personal history of malignant neoplasm of breast
CPT/HCPCS: 15830; 15847; 15877; 36415; 71045; 80048; 80307; 82948; 85025; 93005; 99199; A9270; C9290; C9803; G0378; G0379; J0131; J0171; J0330; J0690; J1100; J1170; J1650; J1885; J2250; J2270; J2405; J2704; J3010; J7120; U0003; U0005

== ENCOUNTER → 2021-06-05 10:25 | Outpatient (CLI) | payer OTHER, SELFPAY ==
--- NOTE | ~2021-06-05 | CT_ITS ---
EXAMINATION: CT chest abdomen pelvis w con DATE: 06/05/2021 10:51 INDICATION: Unspecified abdominal pain, history of breast cancer TECHNIQUE: Transaxial computed tomographic images of the chest, abdomen, and pelvis were obtained aft er the administration of 100 cc of Omnipaque 350 intravenous contrast. The dose-length product (DLP) was 636.17 mGy-cm. Automated exposure control and iterative reconstruction technique were employed. COMPARISON: 10/17/2020 FINDINGS: CHEST CT: Again noted are changes of bilateral mastectomy, implant reconstruction, and left axillary lymph node dissection. The lungs are free of acute opacities. There is no pleural effusion or pneumothorax. A 2 .5 cm nodule is present in the right thyroid lobe. No pathologically enlarged thoracic lymph nodes ar e identified. The heart size is normal. ABDOMEN/PELVIS CT: The liver, spleen, pancreas, gallbladder, and adrenal glands are normal. A duplicated left collecting system is noted. The kidneys are otherwise unremarkable. No pathologically enlarged abdominal or pel yaya lymph nodes are identified. There is no free intraperitoneal gas or evidence of bowel obstruction . There are changes of interval abdominoplasty. There appears to be open wound of the lower abdominal wall. A small amount of adjacent subcutaneous gas is identified. No abdominal wall fluid collection is identified. IMPRESSION: 1. Changes of interval abdominoplasty with apparent open wound of the lower abdominal wall but no def inite associated subcutaneous fluid collection. 2. No evidence of metastatic disease. 3. Right thyroid nodule, consider ultrasound-guided fine-needle aspiration. Reviewed, dictated and finalized at location B. IMPRESSION: 1. Changes of interval abdominoplasty with apparent open wound of the lower abd ominal wall but no definite associated subcutaneous fluid collection. 2. No evidence of metastatic disease. 3. Right thyroid nodule, consider ultrasound-guided fine-needle aspiration.
[2021-06-05 10:40] LABS: Estimated Glomerular Filt Rate > 60
== END ==
PROVIDERS: Visit Provider Internal Medicine Medical Oncology
DX: C50.412 Malignant neoplasm of upper-outer quadrant of left female breast (principal); E04.1 Nontoxic single thyroid nodule; Z17.1 Estrogen receptor negative status [ER-]
CPT/HCPCS: 71260; 74177; Q9967

== ENCOUNTER → 2021-11-29 08:07 | Outpatient (CLI) | payer OTHER, SELFPAY ==
--- NOTE | ~2021-11-29 | CT_ITS ---
EXAMINATION: CT chest abdomen pelvis w con EXAM DATE: 11/29/2021 08:38 INDICATION: Malignant neoplasm of upper-outer quadrant of left breast in . TECHNIQUE: Spiral CT of the chest, abdomen and pelvis was performed following intravenous injection o f 100 mL Omnipaque 350. Axial, coronal and sagittal images chest, abdomen and pelvis were reviewed. Coronal maximum intensity pixel images of chest reviewed. The dose-length product (DLP) for this ex amination was 669.73 mGy-cm. The exposure was tailored according to patient size (auto mA exposure c ontrol), and iterative reconstruction (ASIR) was used as additional dose reduction technique. Compari son is made to prior examination from 06/15/2021. FINDINGS: CHEST: There is right there are lobe nodule measuring about 2.4 cm unchanged. Consider thyroid ultras ound for risk stratification. The lungs are clear. There are no pleural or pericardial effusions. Tracheobronchial tree is patent. There is no mediastinal, hilar or axillary lymphadenopathy. The re is no pneumothorax. Heart normal in size. Bilateral mastectomy. Left-sided axillary lymph no de dissection. ABDOMEN PELVIS: The liver, spleen, adrenal glands and pancreas are unremarkable. Gallbladder is unre markable. No biliary obstruction. Portal and splenic veins are patent. Kidneys enhance symmetrical ly. There is no hydronephrosis. The uterus is not identified and has likely been surgically resect ed. The bladder is unremarkable. There is no retroperitoneal or pelvic lymphadenopathy. Lower abd ominal scar. There are no findings to suggest appendicitis. The stomach and small bowel are unremarkable. There is expected amount of colonic stool. No free intraperitoneal gas. There are no osteoblastic or os teolytic lesions identified. 0 IMPRESSION: 1. No evidence of metastatic disease, stable exam. 2. Right thyroid lobe nodule, consider ultrasound-guided FNA. Reviewed, dictated and finalized at location B. TILE FLOOR LAYER
[2021-11-29 08:24] LABS: Estimated Glomerular Filt Rate > 60
== END ==
PROVIDERS: Visit Provider Internal Medicine Medical Oncology
DX: C50.412 Malignant neoplasm of upper-outer quadrant of left female breast (principal); Z17.1 Estrogen receptor negative status [ER-]; E04.1 Nontoxic single thyroid nodule
CPT/HCPCS: 71260; 74177; Q9967

== ENCOUNTER → 2021-12-25 10:35 | Outpatient (CLI) | payer OTHER, SELFPAY ==
--- NOTE | ~2021-12-25 | US_ITS ---
EXAMINATION: US thyroid DATE: 12/25/2021 10:48 INDICATION: Thyroid nodule. TECHNIQUE: Multiple ultrasound images of the thyroid were obtained. COMPARISON: None. FINDINGS: The right thyroid lobe measures 5.6 x 2.7 x 3.2 cm. The left thyroid lobe measures 4.7 x 1.3 x 1.4 c m. In the left thyroid lobe, there is a 4 mm nodule, likely not clinically significant. In the right thyroid lobe, there is a 3.8 cm solid, isoechoic, [id number] nodule with smooth margin and micr ocalcifications (TI-RADS TR4). IMPRESSION: 1. Right thyroid nodule. The patient has a history of a benign biopsy. Repeat biopsy is recommended o nly if the nodule has significantly grown. Reviewed, dictated and finalized at location A. IMPRESSION: 1. Right thyroid nodule. The patient has a history of a benign biopsy. Repeat b iopsy is recommended only if the nodule has significantly grown.
== END ==
PROVIDERS: Visit Provider Internal Medicine Medical Oncology
DX: E04.1 Nontoxic single thyroid nodule (principal)
CPT/HCPCS: 76536

== ENCOUNTER → 2022-05-30 08:31 | Outpatient (CLI) | payer OTHER, SELFPAY ==
--- NOTE | ~2022-05-30 | US_ITS ---
EXAMINATION: US thyroid DATE: 05/30/2022 09:17 INDICATION: Thyroid nodule. TECHNIQUE: Multiple ultrasound images of the thyroid were obtained. COMPARISON: Ultrasound 12/25/2021 FINDINGS: The right thyroid lobe measures 5.1 x 3.0 x 3.6 cm. The left thyroid lobe measures 3.8 x 1.3 x 1.7 c m. In the right thyroid lobe, there is a 3.7 cm solid, isoechoic, wider than tall nodule with smooth margin and punctate echogenic foci (TI-RADS TR4). In the left thyroid lobe, there is a 4 mm nodule, likely not clinically significant. IMPRESSION: 1. Right thyroid nodule, stable from 12/25/2021. The patient has a history of a benign biopsy. Repeat biopsy is recommended only if the nodule has significantly grown. Reviewed, dictated and finalized at location A. IMPRESSION: 1. Right thyroid nodule, stable from 12/25/2021. The patient has a history of a benign biopsy. Repeat biopsy is recommended only if the nodule has significantl y grown.
--- NOTE | ~2022-05-30 | CT_ITS ---
EXAMINATION: CT chest abdomen pelvis w con DATE: 05/30/2022 09:08 INDICATION: Malignant neoplasm of the left breast; restaging TECHNIQUE: Computed tomography (CT) of the chest, abdomen, and pelvis was performed with 100 CC Omnip aque 350 intravenous contrast. Automated exposure control and iterative reconstruction technique were employed. Exam dose: 757.82 mGy-cm total exam DLP. COMPARISON: 11/29/2021 CT chest abdomen pelvis 07/18/2017 CT chest abdomen pelvis FINDINGS: CHEST CT: Again noted is an approximately 2.4 cm x 3.1 cm heterogeneous mass of the right lobe of the thyroid g land, stable since 12/16/2021. No hilar or mediastinal mass lesion or lymphadenopathy. Normal heart size. No pericardial effusion. No thoracic aortic aneurysm or dissection. The lungs are clear of infiltrate or consolidation. No pulmonary mass lesion is noted. Status post bilateral mastectomy with implant reconstruction. ABDOMEN/PELVIS CT: The liver, gallbladder, bile ducts, spleen, pancreas, pancreatic duct, and adrenal glands and kidneys are unremarkable. Normal caliber of the abdominal aorta. No intraperitoneal or retroperitoneal or pe lvic mass lesion or adenopathy or ascites. The urinary bladder is unremarkable. Status post hysterectomy. Normal appendix. No bowel obstruction or intraperitoneal free air. Included skeletal structures are unremarkable. IMPRESSION: Status post bilateral mastectomy with implant reconstruction. No pericardial metastatic disease is evident. Stable 2.4 cm x 3.1 cm right thyroid mass since 11/29/2021, increased from 1.8 x 2.8 cm since 7. Consider thyroid fine needle biopsy. Reviewed, dictated and finalized at Location A. Reviewed, dictated and finalized at location B. IMPRESSION: Status post bilateral mastectomy with implant reconstruction. No p ericardial metastatic disease is evident. Stable 2.4 cm x 3.1 cm right thyroid mass since 11/29/2021, increased from 1.8 x 2.8 cm since 07/18/2017. Consider thyroid fine needle biopsy.
[2022-05-30 08:56] LABS: Estimated Glomerular Filt Rate > 60
== END ==
PROVIDERS: PCP Internal Medicine Medical Oncology; Visit Provider Internal Medicine Medical Oncology
DX: C50.412 Malignant neoplasm of upper-outer quadrant of left female breast (principal); Z17.1 Estrogen receptor negative status [ER-]; E04.1 Nontoxic single thyroid nodule; Z90.13 Acquired absence of bilateral breasts and nipples
CPT/HCPCS: 71260; 74177; 76536; Q9967

== ENCOUNTER 2022-08-08 12:25 | Outpatient (CLI) | payer OTHER, SELFPAY ==
[2022-08-08 13:42] LABS: HDL Direct 37 mg/dL
[2022-08-08 13:51] LABS: Microalbumin Urine Random 18.2 mg/L (0-16.7)
[2022-08-08 13:53] LABS: Creatinine Urine 71.3 mg/dL; LDL Cholesterol Direct 136 mg/dL; MALB Creatinine Ratio 25.5 mg/g (0-30)
[2022-08-08 14:04] LABS: Free T4 Free Thyroxine 0.93 ng/mL (0.78-2.19)
[2022-08-08 14:13] LABS: Thyroid Stimulating Hormone 0.822 uIU/mL (0.465-4.680)
== END 2022-08-08 12:26 | disposition home or self-care (01) ==
LOC: ANHWCLAB 12:26
PROVIDERS: PCP Internal Medicine Medical Oncology; Visit Provider Internal Medicine Endocrinology, Diabetes & Metabolism
DX: E10.65 Type 1 diabetes mellitus with hyperglycemia (principal); E78.5 Hyperlipidemia, unspecified; Z96.41 Presence of insulin pump (external) (internal); Z71.3 Dietary counseling and surveillance
CPT/HCPCS: 36415; 82043; 83718; 83721; 84439; 84443

== ENCOUNTER → 2022-11-25 09:25 | Outpatient (CLI) | payer OTHER, SELFPAY ==
--- NOTE | ~2022-11-25 | CT_ITS ---
Clinical Indication: Breast cancer CT Scan of the Chest, Abdomen, and Pelvis with Contrast: Technique: Contiguous sections were acquired throughout the chest, abdomen, and pelvis after intraven ous administration of 100 cc of Omnipaque 350. Dose reduction technique was used on this scan by alanna galeas automated exposure control and iterative reconstruction technique. The dose-length product (DL P) was 709.84 mGy-cm. COMPARISON: 05/30/2022 Findings: Stable right thyroid lobe nodule noted. There is no evidence of any significant mediastinal, hilar or axillary lymphadenopathy. The mediastin al soft tissues appear normal. There is no evidence of pleural or pericardial effusion. The lungs are clear. No pulmonary nodules or infiltrates are noted. The liver, spleen, pancreas, gallbladder, adrenals and kidneys are within normal limits. No evidence of aortic aneurysm. No lymphadenopathy. No bowel obstruction or bowel wall thickening. There is no evidence to suggest acute appendicitis. Th ere is minimal haziness of the central mesentery with shotty central mesenteric lymph nodes. Urinary bladder is unremarkable. Patient appears to be post hysterectomy. No pelvic mass identified. Impression: No evidence for active malignancy or metastatic disease. No change from prior exam. Findings consistent with mild mesenteric panniculitis. Stable right thyroid lobe nodule. Reviewed, dictated and finalized at location . TRICIAN SOUND Impression: No evidence for active malignancy or metastatic disease. No change from prior e xam. Findings consistent with mild mesenteric panniculitis. Stable right thyroid lobe nodule.
--- NOTE | ~2022-11-25 | US_ITS ---
EXAMINATION: US thyroid DATE: 11/25/2022 10:14 INDICATION: Nontoxic single thyroid nodule. TECHNIQUE: Multiple ultrasound images of the thyroid were obtained. COMPARISON: Ultrasound 05/30/2022 FINDINGS: The right thyroid lobe measures 5.8 x 3.0 x 3.2 cm. The left thyroid lobe measures 4.1 x 1.3 x 1.8 c m. In the right thyroid lobe, there is a 3.8 cm predominantly solid, hypoechoic, wider than tall nod ule with smooth margin without echogenic foci (TI-RADS TR4). In the left thyroid lobe, there is a 6 m m solid, hypoechoic, wider than tall nodule with ill-defined margin without echogenic foci (TR4). IMPRESSION: 1. Right thyroid nodule, stable from 12/25/2021. The patient has a history of a benign biopsy. Repeat biopsy is recommended only if the nodule has significantly grown. Reviewed, dictated and finalized at location A. C COMPOSER IMPRESSION: 1. Right thyroid nodule, stable from 12/25/2021. The patient has a history of a benign biopsy. Repeat biopsy is recommended only if the nodule has significantl y grown.
[2022-11-25 09:46] LABS: Estimated Glomerular Filt Rate > 60
== END ==
PROVIDERS: PCP Internal Medicine Medical Oncology; Visit Provider Internal Medicine Medical Oncology
DX: C50.412 Malignant neoplasm of upper-outer quadrant of left female breast (principal); E04.1 Nontoxic single thyroid nodule; Z17.1 Estrogen receptor negative status [ER-]
CPT/HCPCS: 71260; 74177; 76536; Q9967

== ENCOUNTER → 2023-06-03 08:08 | Outpatient (CLI) | payer OTHER, SELFPAY ==
--- NOTE | ~2023-06-03 | CT_ITS ---
EXAMINATION: CT chest abdomen pelvis w con DATE: 06/03/2023 08:41 INDICATION: History of left breast cancer TECHNIQUE: Transaxial computed tomographic images of the chest, abdomen, and pelvis were obtained aft er the administration of 100 cc of Omnipaque 350 intravenous contrast. The dose-length product (DLP) was 664.83 mGy-cm. Automated exposure control and iterative reconstruction technique were employed. COMPARISON: 11/25/2022 FINDINGS: CHEST CT: The lungs are free of acute opacities. No pleural effusion or pneumothorax. No suspicious pulmonary n odules are identified. There are changes of bilateral mastectomy with implant reconstruction. No path ologically enlarged thoracic lymph nodes are identified. The heart size is normal. A stable nodule of the right thyroid is again noted, having previously undergone benign biopsy. ABDOMEN/PELVIS CT: The liver, spleen, pancreas, gallbladder, and adrenal glands are normal. The kidneys are unremarkable . No pathologically enlarged abdominal or pelvic lymph nodes are identified. There is chronic promine nce of nonenlarged lymph nodes in the small bowel mesentery which could reflect mesenteric panniculit is. No free intraperitoneal gas or evidence of bowel obstruction. The appendix is normal. IMPRESSION: 1. No evidence of metastatic disease. Reviewed, dictated and finalized at location L.
[2023-06-03 08:33] LABS: Estimated Glomerular Filt Rate > 60
== END ==
PROVIDERS: PCP Internal Medicine Medical Oncology; Visit Provider Internal Medicine Medical Oncology
DX: C50.412 Malignant neoplasm of upper-outer quadrant of left female breast (principal); Z17.0 Estrogen receptor positive status [ER+]
CPT/HCPCS: 71260; 74177; Q9967

== ENCOUNTER 2024-05-24 10:47 | Outpatient (CLI) | payer OTHER, SELFPAY ==
--- NOTE | ~2024-05-24 | CT_ITS ---
Clinical Indication: Metastatic breast cancer restaging CT Scan of the Chest, Abdomen, and Pelvis with Contrast: Technique: Contiguous sections were acquired throughout the chest, abdomen, and pelvis after intraven ous administration of 100 cc of Omnipaque 350. Dose reduction technique was used on this scan by alanna galeas automated exposure control and iterative reconstruction technique. The dose-length product (DL P) was 607.79 mGy-cm. COMPARISON: 06/03/2023 Findings: There is no evidence of any significant mediastinal, hilar or axillary lymphadenopathy. The mediastin al soft tissues appear normal. There is no evidence of pleural or pericardial effusion. The lungs are clear. No pulmonary nodules or infiltrates are noted. The liver, spleen, pancreas, gallbladder, adrenals and kidneys are within normal limits. No evidence of aortic aneurysm. Prominent central mesenteric lymph nodes with minimal haziness of the central me sentery is stable from prior exam, compatible with mild mesenteric panniculitis.. No bowel obstruction or bowel wall thickening. There is no evidence to suggest acute appendicitis. Urinary bladder is unremarkable. No pelvic mass seen. No ascites. Impression: No evidence of recurrent malignancy or metastatic disease. Mesenteric panniculitis. Reviewed, dictated and finalized at [facility]. Impression: No evidence of recurrent malignancy or metastatic disease. Mesenteric panniculitis.
[2024-05-24 11:02] LABS: Estimated Glomerular Filt Rate > 60
== END 2024-05-24 10:48 ==
LOC: MICIMG 10:49
PROVIDERS: PCP Internal Medicine Medical Oncology; Visit Provider Internal Medicine Medical Oncology
DX: C50.412 Malignant neoplasm of upper-outer quadrant of left female breast (principal); C78.1 Secondary malignant neoplasm of mediastinum; K65.4 Sclerosing mesenteritis
CPT/HCPCS: 71260; 74177; Q9967

== ENCOUNTER 2024-08-24 14:44 | Outpatient (CLI) | payer OTHER, SELFPAY ==
--- NOTE | 2024-08-24 | ECHO_ITS ---
Patient Info Name: Caryn Ramos Age: 44 years : 1980 Gender: Female Ht: 65 in Wt: 150 lbs BSA: 1.78 m2 HR: 70 bpm BP: 145 / 78 mmHg Heart Rhythm: Sinus Rhythm Technical Quality: Fair Exam Date: 08/24/2024 3:13 PM Exam Location: Echo Lab Patient Status: Outpatient Admit Date: 08/24/2024 Staff Ordering Physician: MashaRosie PA-C Administrative Law Judge: Sim Centeno RDCS Attending Provider: ChristineRosie PA-C Exam Type: CA echo doppler color flow Study Info Indications - murmur Complete two-dimensional, color flow and Doppler transthoracic echocardiogram is performed. Summary 1. Complete two-dimensional, color flow and Doppler transthoracic echocardiogram is performed. 2. Left ventricular chamber dimension is normal. 3. Left ventricular systolic function is normal, estimated at 60-65%. 4. The left ventricular diastolic function is grade I diastolic dysfunction. 5. E/e' 7 is not elevated. 6. There is mild aortic valve sclerosis. 7. No pulmonary hypertension, estimated pulmonary arterial systolic pressure is 12 mmHg. 8. There is mild pulmonic regurgitation. Left Ventricle E/e' 7 is not elevated. Left ventricular chamber dimension is normal. Left ventricular systolic function is normal, estimated at 60-65%. The left ventricular diastolic function is grade I diastolic dysfunction. Right Ventricle Right ventricular systolic function is normal and with normal TAPSE 2.4 cm. Right ventricular chamber dimension is normal. Left Atria Left atrial chamber dimension is normal. Right Atria Right atrial chamber dimension is normal. Aortic Valve The aortic valve is trileaflet. There is mild aortic valve sclerosis. There is no aortic valve stenosis. There is no aortic valve regurgitation. Pulmonic Valve There is mild pulmonic regurgitation. Mitral Valve There is no mitral valve stenosis. There is no mitral valve regurgitation. Tricuspid Valve There is no tricuspid valve regurgitation. No pulmonary hypertension, estimated pulmonary arterial systolic pressure is 12 mmHg. Pericardium/Pleural There is no pericardial effusion. Inferior Vena Cava Normal inferior vena cava with >50% collapse upon inspiration consistent with normal right atrial pressure, 5 mmHg. Aorta The aortic root size at the sinus of Valsalva is normal. Left Ventricular Outflow Tract Name Value Normal LVOT 2D LVOT Diameter 2.1 cm LVOT Doppler LVOT Peak Gradient 3 mmHg LVOT Mean Gradient 2 mmHg LVOT VTI 17 cm LVOT VTI/AV VTI Ratio 0.8 LVOT Stroke Volume 59 ml LVOT CO 4.8 l/min LVOT CI 2.7 l/min/m2 Mitral Valve Name Value Normal MV Doppler MV Decel Leslie 476 cm/s2 MV PHT 31 ms MV Area (PHT) 7.0 cm2 4.0-5.0 MV Diastolic Function MV E Peak Velocity 51 cm/s MV A Peak Velocity 56 cm/s MV E/A 0.9 MV Decel Time 108 ms MV Annular TDI MV E/e' (Septal) 10.2 <=8.0 MV E/e' (Lateral) 6.4 <=8.0 MV E/e' (Average) 8.3 Tricuspid Valve Name Value Normal TV Regurgitation Doppler TR Peak Velocity 132 cm/s TR Peak Gradient 6 mmHg Estimated PAP/RSVP RA Pressure 5 mmHg <=5 PA Systolic Pressure 12 mmHg <36 RV Systolic Pressure 12 mmHg <36 Aortic Valve Name Value Normal AV Doppler AV Peak Velocity 111 cm/s AV Peak Gradient 5 mmHg AV Mean Gradient 3 mmHg AV VTI 21 cm AV Area (Cont Eq VTI) 2.8 cm2 >=3.0 AV Area (Cont Eq Jd) 2.8 cm2 AV Regurgitation 2D LVOT Area 3.5 cm2 Ventricles Name Value Normal LV Dimensions 2D/MM IVS Diastolic Thickness (2D) 1.1 cm 0.6-1.0 LVID Diastole (2D) 4.2 cm 3.8-5.2 LVIW Diastolic Thickness (2D) 1.1 cm 0.6-0.9 LVID Systole (2D) 2.7 cm 2.2-3.5 LVOT Diameter 2.1 cm LV Mass (2D Cubed) 165.86 g 67.00-162.00 LV Mass Index (2D Cubed) 93 g/m2 43-95 Relative Wall Thickness (2D) 0.54 LV Fractional Shortening/Ejection Fraction 2D/MM LV Fractional Shortening (2D) 35 % 27-45 LV EF (2D Teichrodriguez) 64 % 54-74 LV Diastolic Volume (4C MOD) 106 ml LV EF (4C MOD) 72 % LV Diastolic Volume (2C MOD) 55 ml LV EF (2C MOD) 56 % LV Diastolic Volume (BP MOD) 78 ml 46-106 LV Diastolic Volume Index (BP MOD) 44 ml/m2 29-61 LV Systolic Volume (BP MOD) 29 ml 14-42 LV Systolic Volume Index (BP MOD) 17 ml/m2 8-24 LV EF (BP MOD) 62 % 54-74 LV Diastolic Length (4C) 7.9 cm LV Systolic Length (4C) 5.9 cm LV Stroke Volume (4C MOD) 76 ml Atria Name Value Normal LA Dimensions LA Volume (4C A-L) 34 ml LA Volume (BP A-L) 26 ml RA Dimensions RA Area (4C) 11.0 cm2 <=18.0 Report Signatures
== END 2024-08-24 14:45 | disposition home or self-care (01) ==
PROVIDERS: PCP Internal Medicine Medical Oncology; Visit Provider Physician Assistant
DX: R01.1 Cardiac murmur, unspecified (principal); I08.3 Combined rheumatic disorders of mitral, aortic and tricuspid valves
CPT/HCPCS: 93306

== ENCOUNTER 2024-09-27 11:47 | Outpatient (CLI) | payer OTHER, SELFPAY ==
--- NOTE | ~2024-09-27 | US_ITS ---
EXAMINATION: US thyroid DATE: 09/27/2024 12:04 INDICATION: Thyroid nodule TECHNIQUE: Multiple ultrasound images of the thyroid were obtained assessing grayscale appearance and color Doppler flow. COMPARISON: 11/25/2022 FINDINGS: The right thyroid lobe measures 5.8 x 3.7 x 3.2 cm. Within the upper pole of the right lobe of the thyroid gland is a 44 x 34 x 28 mm nodule: Composition - spongiform (0) Echogenicity -hyperechoic/isoechoic (1) Shape - wider than tall (0) Margin - smooth (0) Echogenic foci - none. (0) = TR1 benign. The left thyroid lobe measures 5.0 x 1.4 x 1.5 cm. The isthmus measures 0.25cm in anterior to posterior dimension. There is normal echotexture and echogenicity throughout the thyroid gland. No discrete nodules identi fied. Normal vascular flow is present. IMPRESSION: TR1 nodule in the right lobe of the thyroid gland measuring 44mm in greatest dimension. This nodule is not sonographically suspicious and no FNA is recommended Follow-up may be performed. Reviewed, dictated and finalized at location A. O [employer] IMPRESSION: TR1 nodule in the right lobe of the thyroid gland measuring 44mm in greatest di mension. This nodule is not sonographically suspicious and no FNA is recommended Follow-up may be performed.
== END 2024-09-27 11:48 | disposition home or self-care (01) ==
PROVIDERS: PCP Internal Medicine Medical Oncology; Visit Provider Physician Assistant
DX: E04.1 Nontoxic single thyroid nodule (principal)
CPT/HCPCS: 76536

== ENCOUNTER 2025-06-07 10:13 | Outpatient (CLI) | payer OTHER, SELFPAY ==
--- NOTE | ~2025-06-07 | CT_ITS ---
EXAMINATION: CT chest abdomen pelvis w con DATE: 06/07/2025 11:00 INDICATION: Malignant neoplasm of upper outer quadrant of left breast. TECHNIQUE: Computed tomography (CT) of the chest, abdomen, and pelvis was performed with 100 mL Omnipaque 350 intravenous contrast. Automated exposure control and iterative reconstruction technique were employed. The dose-length product was 588.22 mGy-cm. COMPARISON: CT 05/24/2024, 04/13/2020, thyroid ultrasound 09/27/2024, 05/30/22 FINDINGS: CHEST CT: The lungs demonstrate minimal atelectasis. No pleural effusion. There is a 3.7 cm nodule in right thyroid lobe with history of benign biopsy. The heart size is normal. No pericardial effusion. There are bilateral breast implants. There is mild thoracic spondylosis. ABDOMEN/PELVIS CT: The liver, gallbladder, spleen, pancreas, adrenal glands, and kidneys are normal. There are no dilated loops of bowel. The appendix is normal. There are no pathologically enlarged lymph nodes. There is no free intraperitoneal fluid. There is mild lumbar spondylosis. IMPRESSION: 1. No evidence of metastatic disease. Reviewed, dictated and finalized at location E.
[2025-06-07 10:47] LABS: Estimated Glomerular Filt Rate > 60
== END 2025-06-07 10:14 | disposition home or self-care (01) ==
PROVIDERS: PCP Internal Medicine Medical Oncology; Visit Provider Internal Medicine Medical Oncology
DX: C50.412 Malignant neoplasm of upper-outer quadrant of left female breast (principal); Z17.1 Estrogen receptor negative status [ER-]
CPT/HCPCS: 71260; 74177; Q9967